=== PATIENT | male | born 1950 | race Hispanic/Latino ===

== ENCOUNTER 2017-03-23 08:45 | Day surgery (SDC) | payer OTHER, MEDICARE ==
[~2017-03-23] VITALS: Ht 172.7 cm; Wt 79.0 kg
[~2017-03-23 08:45] MED LIST: AMLO10TA5 PO; ATEN50TA PO; LISI-567 PO; PRE20 PO; SOFO1TAB PO; Sodium Chloride LOK Flush 10 mL Syringe IV PRN; TAM4 PO; VALA100026 PO; fentaNYL-PF 50 mCg/mL 2 mL Inj IVPUSH PRN
[2017-03-23 09:07] VITALS: BP 131/82; PULSE 47; RESP 16; O2SAT 96
[2017-03-23] MEDS ORDERED: AMLO10TA3 PO (09:07)
[2017-03-23] MEDS: 0.9% Sodium Chloride 1,000 ML IV SCH ×3 (09:53→10:07)
[2017-03-23 10:14] VITALS: BP 134/75; PULSE 48; RESP 14; O2SAT 96
[2017-03-23 10:24] VITALS: BP 149/78; PULSE 45; RESP 16; O2SAT 97
--- NOTE | 2017-03-23 10:32 | ENDO ---
[address] [address] ENDOSCOPY PROCEDURE PATIENT: MANASA SNEED : 1950 MR#: [id number] ADMIT: 03/23/2017 JOB ID: [id number] DATE: 03/23/2017 PRIMARY PROVIDER: Raimundo Maciel M.D. PROCEDURE: Esophagogastroduodenoscopy with biopsy. INDICATIONS: A 66-year-old male with thrombocytopenia and a history of advanced liver disease, cirrhosis, who reports for variceal screening. EQUIPMENT: GIF H 180 J. SEDATION: 1. 2 mg Versed. 2. 50 mcg fentanyl. COMPLICATIONS: None identified. PROCEDURAL INFORMATION: After the risks and benefits were explained, written and verbal informed consent was obtained. The patient was brought into the endoscopy suite and placed into the left lateral decubitus position. Sedation was achieved using the above-stated medications with the addition of oxygen via nasal cannula. The scope was introduced into the mouth and advanced to the second portion of the duodenum. The scope was slowly withdrawn to carefully examine the mucosa for any defects or lesions. Retroflexed views were accomplished in the stomach. The stomach was decompressed. The scope removed from the patient who tolerated the procedure well. FINDINGS: 1. Duodenum: No significant pathology from the bulb through to the second portion. 2. Stomach: The patient had a diffuse gastropathy with some subtle scattered erosive features throughout. Random biopsy was taken for exclusion of Helicobacter or other pathology. Otherwise, I did not see any varices and no other mass lesions, ulcers or other pathology. Retroflexed views were unremarkable. 3. Esophagus: The squamocolumnar junction correlated with the top of the gastric folds. The GEJ was at 39 cm from the incisors. I did not see any evidence of esophageal varices throughout. No significant esophageal pathology throughout. ENDOSCOPIC DIAGNOSIS: 1. Mild erosive gastropathy. 2. Otherwise visually unremarkable esophagogastroduodenoscopy. RECOMMENDATIONS: 1. Await histopathology. 2. If Helicobacter is found, it will need to be eradicated with standard triple therapy. 3. Repeat EGD in 2-3 years for variceal screening.
[2017-03-23 10:33] VITALS: BP 141/74; PULSE 50; RESP 16; O2SAT 98
--- NOTE | 2017-03-24 09:58 | PATH ---
SURGICAL PATHOLOGY Attending Physician:Amber Menendez CASE STATUS: Signed Out PATIENT NAME: MANASA SNEED PID: [id number] : 1950 DATE COLLECTED:03/23/2017 16:29 SPECIMEN: Gastric, Biopsy CLINICAL HISTORY: 1. GASTRIC BXS FINAL DIAGNOSIS: 1.GASTRIC BIOPSIES: FOCAL MINIMAL CHRONIC GASTRITIS INVOLVING FUNDIC MUCOSA. Negative for evidence of Helicobacter. Negative for intestinal metaplasia. Negative for dysplasia and malignancy. ICD10 K29.70 GROSS DESCRIPTION: The specimen is received in one formalin filled container labeled with the patient's name, sublabeled "gastric" and consists of a 0.2 x 0.2 x 0.2 CM portion of tissue which is entirely submitted in one cassette. 03/23/2017 [facility] MICRO DESCRIPTION: See diagnosis. ICD-9 CODES: CPT CODES: 1: 04478 Electronically Signed Out Nam Mott MD [facility] Pathology [facility] [address] [facility], [place] [address] Technical component performed at [facility], [address] [place] [address] [address], [address]
== END 2017-03-23 23:59 | disposition home or self-care (01) ==
LOC: END 08:45
PROVIDERS: ATTEND Internal Medicine Gastroenterology
DX: K29.50 Unspecified chronic gastritis without bleeding (principal); K31.9 Disease of stomach and duodenum, unspecified; B18.2 Chronic viral hepatitis C; D69.6 Thrombocytopenia, unspecified; I10 Essential (primary) hypertension; N40.0 Benign prostatic hyperplasia without lower urinary tract symptoms
CPT/HCPCS: 43239; G0500; J7030